=== PATIENT | male | born 1995 | race Caucasian/White ===

== ENCOUNTER → 2021-04-28 | Outpatient (REF) | payer OTHER | LOC: M LAB REF 15:46 | PROVIDERS: ATTEND Physician Assistant | DX: J02.9 Acute pharyngitis, unspecified (principal) ==

== ENCOUNTER → 2021-05-30 | Outpatient (CLI) | payer OTHER ==
--- NOTE | 2021-05-30 10:56 | REP ---
INDICATION: COUGH. COMPARISON: None. TECHNIQUE: Upright PA and lateral chest images were obtained. FINDINGS: The lungs are clear. There is no lobar consolidation or pleural effusion. The heart borders mediastinum and pulmonary vascular pattern normal. The upper abdominal bowel gas pattern is normal. There are no bony abnormalities of the chest. IMPRESSION: No evidence of acute cardiopulmonary pathology. <Electronically signed by Preston Helms > 05/30/21 1615
== END ==
LOC: M RAD 10:04
PROVIDERS: ATTEND Physician Assistant
DX: R05 Cough (principal)

== ENCOUNTER → 2022-09-25 | Outpatient (CLI) | payer OTHER ==
[2022-09-25 11:22] LABS: BASO # 0.1 10^3/uL (0.0-0.2); BASO % 0.8 % (0.0-1.0); EOS % 0.6 % (0.0-3.0); HEMATOCRIT 45.2 % (42.0-52.0); LYMPH # 1.9 10^3/uL (1.5-5.0); LYMPH % 29.2 % (24.0-44.0); MEAN CORPUSCULAR HGB CONC 33.2 g/dl (32.0-36.5); MEAN CORPUSCULAR VOLUME 93.4 fl (80.0-96.0); MONO # 0.5 10^3/uL (0.0-0.8); MONO % 7.5 % (2.0-8.0); NEUTROPHILS % 61.6 % (36.0-66.0); PLATELET COUNT, AUTOMATED 291 10^3/uL (150-450); RED BLOOD COUNT 4.84 10^6/uL (4.30-6.10); WHITE BLOOD COUNT 6.5 10^3/uL (4.0-10.0)
[2022-09-25 11:54] LABS: CHOLESTEROL LEVEL 179 MG/DL (<200); CHOLESTEROL RISK RATIO 4.66 (<5); HDL CHOLESTEROL 38.4 MG/DL (>40); NON-HDL-C 141 MG/DL; TRIGLYCERIDES LEVEL 88 MG/DL (<150)
[2022-09-25 11:56] LABS: THYROID STIMULATING HORMONE 1.493 uIU/ML (0.55-4.78)
[2022-09-25 11:57] LABS: FREE T4 1.33 NG/DL (0.89-1.76)
[2022-09-25 14:16] LABS: GC DNA AMPLIFICATION NEGATIVE (NEGATIVE)
== END ==
LOC: M LAB 10:41
PROVIDERS: ATTEND Physician Assistant
DX: Z13.220 Encounter for screening for lipoid disorders (principal); Z13.29 Encounter for screening for other suspected endocrine disorder; Z72.52 High risk homosexual behavior

== ENCOUNTER → 2023-09-08 | Outpatient (CLI) | payer OTHER ==
[2023-09-08 10:44] LABS: THYROID STIMULATING HORMONE 4.571 uIU/ML (0.55-4.78); THYROXINE (T4) 9.8 UG/DL (4.5-10.9)
[2023-09-08 10:53] LABS: FREE THYROXINE INDEX 3.7 % (1.4-3.8); T UPTAKE 38.2 % (22.5-37.0)
[2023-09-08 10:55] LABS: FOLATE 20.1 NG/ML (>5.4)
== END ==
LOC: M PLALAB 08:45
PROVIDERS: ATTEND Psychiatry & Neurology Neurology
DX: E07.9 Disorder of thyroid, unspecified (principal); E53.8 Deficiency of other specified B group vitamins; R25.1 Tremor, unspecified

== ENCOUNTER → 2023-12-09 | Outpatient (REF) | payer OTHER | LOC: M LAB REF 15:57 | PROVIDERS: ATTEND Physician Assistant | DX: J02.9 Acute pharyngitis, unspecified (principal) ==